=== PATIENT | male | born 2000 | race African-American/Black ===

== ENCOUNTER 2018-08-30 14:44 | Emergency (ER) | payer MEDICAID ==
--- NOTE | 2018-08-30 16:21 | ER Document Report ---
ED Medical Screen (RME) - General Chief Complaint: Leg Pain Stated Complaint: ABDOMINAL PAIN Time Seen by Provider: 08/30/18 16:18 Mode of Arrival: Ambulatory Information source: Patient Notes: pt just moved here from [place] 3 weeks ago, c/o right leg pain, history of sickle cell. no other c/o I have greeted and performed a rapid initial assessment of this patient. A comprehensive ED assessment and evaluation of the patient, analysis of test results and completion of the medical decision making process will be conducted by additional ED providers. TRAVEL OUTSIDE OF THE [place] IN LAST 30 DAYS: No - Related Data Allergies/Adverse Reactions: ondansetron [From Zofran] Allergy (Verified 08/30/18 14:49) Morphine Allergy (Uncoded 08/30/18 14:49) Physical Exam - Vital signs Vitals: Temp Pulse Resp BP Pulse Ox 98.3 F 70 20 148/64 H 100 08/30/18 15:05 08/30/18 15:05 08/30/18 15:05 08/30/18 15:05 08/30/18 15:05 Course - Vital Signs Vital signs: Temp Pulse Resp BP Pulse Ox 98.3 F 70 20 148/64 H 100 08/30/18 15:05 08/30/18 15:05 08/30/18 15:05 08/30/18 15:05 08/30/18 15:05 - Laboratory Result Diagrams: 08/30/18 17:15 08/30/18 17:15 Laboratory results interpreted by me: 08/30/18 08/30/18 17:15 17:15 RDW 19.3 H Plt Count 104 L Monocytes % (Manual) 2 L Retic Count (auto) 4.91 H Absolute Retic 0.245 H Total Bilirubin 2.8 H Alkaline Phosphatase 46 L
[2018-08-30 17:32] LABS: ABSOLUTE RETICS # 0.245 10^6/uL (0.028-0.122); HEMATOCRIT 40.3 % (37.9-51.0); HEMOGLOBIN 14.3 g/dL (13.5-17.0); MEAN CORPUSCULAR HEMOGLOBIN 28.7 pg (27.0-33.4); MEAN CORPUSCULAR HGB CONC 35.6 g/dL (32.0-36.0); MEAN CORPUSCULAR VOLUME 81 fl (80-97); PLATELET COUNT 104 10^3/uL (150-450); RED BLOOD COUNT 4.99 10^6/uL (4.35-5.55); RED CELL DISTRIBUTION WIDTH 19.3 % (11.5-14.0); RETICULOCYTE COUNT (AUTO) 4.91 % (0.66-2.85); WHITE BLOOD COUNT 6.7 10^3/uL (4.0-10.5)
[2018-08-30 17:40] LABS: ALANINE AMINOTRANSFERASE 22 U/L (10-40); ALBUMIN 4.9 g/dL (3.7-5.6); ALKALINE PHOSPHATASE 46 U/L (65-260); ANION GAP 10 (5-19); ASPARTATE AMINO TRANSFERASE 26 U/L (10-45); BILIRUBIN,DIRECT 0.2 mg/dL (0.0-0.4); BILIRUBIN,TOTAL 2.8 mg/dL (0.2-1.3); BLOOD UREA NITROGEN 11 mg/dL (7-20); CALCIUM 9.9 mg/dL (8.4-10.2); CARBON DIOXIDE 28 mmol/L (22-30); CHLORIDE 102 mmol/L (98-107); GLUCOSE 92 mg/dL (75-110); POTASSIUM 4.2 mmol/L (3.6-5.0); SODIUM 140.2 mmol/L (137-145); TOTAL PROTEIN 7.9 g/dL (6.3-8.2)
[2018-08-30 17:57] LABS: ABSOLUTE LYMPHOCYTES# (MANUAL) 2.9 10^3/uL (0.5-4.7); ABSOLUTE MONOCYTES # (MANUAL) 0.1 10^3/uL (0.1-1.4); ABSOLUTE NEUTROPHILS# (MANUAL) 3.6 10^3/uL (1.7-8.2); ANISOCYTOSIS 2+; BASOPHILS % (MANUAL) 1 % (0-2); EOSINOPHILS % (MANUAL) 1 % (0-6); HYPOCHROMASIA 1+; LYMPHOCYTES % (MANUAL) 36 % (13-45); MONOCYTES % (MANUAL) 2 % (3-13); PLATELET COMMENT DECREASED; POLYCHROMASIA SLIGHT; SEGMENTED NEUTROPHILS % (MAN) 53 % (42-78); TARGET CELLS 1+; TOTAL CELLS COUNTED 100
--- NOTE | 2018-08-30 19:02 | ER Document Report ---
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 Was followed by one provider in [place] prior to moving here 3 weeks ago. Patient states when he would have these acute episodes he would receive IV fluids and IV Toradol to see if that helps. If his symptoms resolved then he would typically go home and if they did not then he would receive IV Dilaudid. Patient denies any chest pain or shortness of breath. Patient denies any dizziness or lightheadedness. Denies fevers or chills. Denies nausea, vomiting, abdominal pain. Denies priapism. Patient has not established care here yet and does not have any pain medications. TRAVEL OUTSIDE OF THE [place] IN LAST 30 DAYS: No - Related Data Allergies/Adverse Reactions: ondansetron [From Zofran] Allergy (Verified 08/30/18 14:49) Morphine Allergy (Uncoded 08/30/18 14:49) Past Medical History - General Information source: Patient - Social History Smoking Status: Never Smoker Chew tobacco use (# tins/day): No Frequency of alcohol use: Occasional Drug Abuse: None Family History: None Patient has suicidal ideation: No Patient has homicidal ideation: No Renal/ Medical History: Denies: Hx Peritoneal Dialysis Review of Systems - Review of Systems Constitutional: See HPI EENT: No symptoms reported Cardiovascular: See HPI Respiratory: See HPI Gastrointestinal: See HPI Genitourinary: No symptoms reported Male Genitourinary: See HPI Musculoskeletal: No symptoms reported Skin: No symptoms reported Hematologic/Lymphatic: No symptoms reported Neurological/Psychological: No symptoms reported Physical Exam - Vital signs Vitals: Temp Pulse Resp BP Pulse Ox 98.3 F 70 20 148/64 H 100 08/30/18 15:05 08/30/18 15:05 08/30/18 15:05 08/30/18 15:05 08/30/18 15:05 - Notes Notes: PHYSICAL EXAMINATION: Reviewed vital signs and charting by RN GENERAL: Alert, interacts well. No acute distress. HEAD: Normocephalic, atraumatic. NECK: Full range of motion. Supple. Trachea midline. LUNGS: Clear to auscultation bilaterally, no wheezes, rales, or rhonchi. No respiratory distress. HEART: Regular rate and rhythm. No murmur ABDOMEN: soft, non-tender. Non-distended. Bowel sounds present in all 4 quadrants. no McBurney's point tenderness, no Layton sign. EXTREMITIES: Moves all 4 extremities spontaneously. No edema, No cyanosis. Tenderness when palpating the right leg PSYCH: Normal affect, normal mood. SKIN: Warm, dry, normal turgor. No rashes or lesions noted. Course - Re-evaluation Re-evalutation: 08/30/18 19:00 Overall appears well, not in extremis. Patient's hemoglobin 14.8. Absolute reticulocyte count 0.245, reticulocyte count 4.91. We will give patient IV fluids and IV Toradol and reassess. If patient does not respond will escalate and give a small dose of narcotics. I also plan to bridge the patient with a small prescription for his normal dosing of Percocet. I performed a [facility]ware search and it shows that he has been followed by one provider in [place] with no red flags. 08/30/18 19:01 08/30/18 20:17 Reassessed patient he is still in acute pain he states his pain is an 8.5/10. He said the Toradol did not help. I will give him Dilaudid 0.5 mg IV 1 time then reassess. 08/30/18 21:07 Patient responded well to the Dilaudid. It was given about 45 minutes ago. I will give him another 15 minutes and reassess. At this time patient is moving in the right direction and will be discharged home. 08/30/18 21:28 Patient states he is feeling much better and is ready to go home. Stable for discharge. - Vital Signs Vital signs: Temp Pulse Resp BP Pulse Ox 98.3 F 70 20 148/64 H 100 08/30/18 15:05 08/30/18 15:05 08/30/18 15:05 08/30/18 15:05 08/30/18 15:05 - Laboratory Result Diagrams: 08/30/18 17:15 08/30/18 17:15 Laboratory results interpreted by me: 08/30/18 08/30/18 17:15 17:15 RDW 19.3 H Plt Count 104 L Monocytes % (Manual) 2 L Retic Count (auto) 4.91 H Absolute Retic 0.245 H Total Bilirubin 2.8 H Alkaline Phosphatase 46 L Discharge - Discharge Clinical Impression: Sickle cell pain crisis Condition: Good Disposition: HOME, SELF-CARE Instructions: Sickle Cell Crisis ([facility]) Additional Instructions: You were seen today for sickle cell pain crisis. Please follow-up with your music teacher. Returning to the ED if you have worsening pain, fever greater than 100.4, shortness of breath, persistent vomiting, or any other symptoms that are concerning to you. Prescriptions: Oxycodone HCl/Acetaminophen [Percocet 10-325 Mg Tablet] 1 each PO Q6H #15 tablet
[2018-08-30] MEDS ORDERED: KETOROLAC TROMETHAMINE INJ/PF 30 MG/1 ML SDV IV ONE (19:04)
[2018-08-30] MEDS ORDERED: NORMAL SALINE 1000 ML 1,000 ML IV ONE (19:04)
[2018-08-30] MEDS ORDERED: HYDROMORPHONE HCL INJ/PF 2 MG/ML AMPULE IV ONE (20:17)
[2018-08-30 21:42] VITALS: BP 146/72
== END 2018-08-30 21:42 | disposition home or self-care (01) ==
LOC: ER 14:44
DX: D57.00 Hb-SS disease with crisis, unspecified (principal); R10.9 Unspecified abdominal pain; Z79.899 Other long term (current) drug therapy
CPT/HCPCS: 99284; 96361; 96374; 96375; 36415; 85025; 85045; 80053; J1885; J1170; J7030

== ENCOUNTER 2018-09-23 08:22 | Emergency (ER) | payer MEDICAID ==
[2018-09-23] MEDS ORDERED: OXYCODONE-ACETAMINOPHEN 5-325 MG TABLET PO ONE (09:28)
--- NOTE | 2018-09-23 09:30 | ER Document Report ---
ED Medical Screen (RME) - General Chief Complaint: Sickle Cell Crisis Stated Complaint: BODY PAIN Time Seen by Provider: 09/23/18 09:28 Mode of Arrival: Ambulatory Information source: Patient Notes: 17-year-old male presents to ED for sickle cell pain to the left leg. He states he normally had this pain in his right leg but this demonstrated left. 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 He usually takes ibuprofen and Percocet but he ran out of them about a week ago and this pain started 2 days ago. He had a port in the past but that has been removed. Patient is alert oriented respirations regular and unlabored speaking in full sentences walks with a even steady gait. I have greeted and performed a rapid initial assessment of this patient. A comprehensive ED assessment and evaluation of the patient, analysis of test results and completion of medical decision making process will be conducted by an additional ED providers. TRAVEL OUTSIDE OF THE [place] IN LAST 30 DAYS: No - Related Data Allergies/Adverse Reactions: ondansetron [From Zofran] Allergy (Verified 09/23/18 08:24) Morphine Allergy (Uncoded 09/23/18 08:24) Past Medical History - Social History Chew tobacco use (# tins/day): No Frequency of alcohol use: None Drug Abuse: None Renal/ Medical History: Denies: Hx Peritoneal Dialysis Physical Exam - Vital signs Vitals: Temp Pulse Resp BP Pulse Ox 98.4 F 75 18 133/71 H 100 09/23/18 08:27 09/23/18 08:27 09/23/18 08:27 09/23/18 08:27 09/23/18 08:27 Course - Vital Signs Vital signs: Temp Pulse Resp BP Pulse Ox 98.4 F 75 18 133/71 H 100 09/23/18 08:27 09/23/18 08:27 09/23/18 08:27 09/23/18 08:27 09/23/18 08:27
[2018-09-23 10:36] LABS: APPEARANCE,URINE CLEAR; BILIRUBIN,URINE NEGATIVE (NEGATIVE); COLOR,URINE YELLOW; GLUCOSE, URINE NEGATIVE (NEGATIVE); KETONES,URINE NEGATIVE (NEGATIVE); LEUKOCYTE ESTERASE,URINE NEGATIVE (NEGATIVE); NITRITE,URINE NEGATIVE (NEGATIVE); PROTEIN,URINE NEGATIVE (NEGATIVE); URINE SPECIFIC GRAVITY 1.009; UROBILINOGEN,URINE NEGATIVE mg/dL (<2.0)
[2018-09-23 11:02] LABS: ABSOLUTE RETICS # 0.204 10^6/uL (0.028-0.122); HEMATOCRIT 40.4 % (37.9-51.0); HEMOGLOBIN 14.4 g/dL (13.5-17.0); MEAN CORPUSCULAR HEMOGLOBIN 28.4 pg (27.0-33.4); MEAN CORPUSCULAR HGB CONC 35.7 g/dL (32.0-36.0); MEAN CORPUSCULAR VOLUME 80 fl (80-97); PLATELET COUNT 124 10^3/uL (150-450); RED BLOOD COUNT 5.08 10^6/uL (4.35-5.55); RED CELL DISTRIBUTION WIDTH 18.9 % (11.5-14.0); RETICULOCYTE COUNT (AUTO) 4.01 % (0.66-2.85); WHITE BLOOD COUNT 7.6 10^3/uL (4.0-10.5)
[2018-09-23 11:08] LABS: ABSOLUTE LYMPHOCYTES# (MANUAL) 2.5 10^3/uL (0.5-4.7); ABSOLUTE MONOCYTES # (MANUAL) 0.3 10^3/uL (0.1-1.4); ABSOLUTE NEUTROPHILS# (MANUAL) 4.8 10^3/uL (1.7-8.2); BASOPHILS % (MANUAL) 0 % (0-2); EOSINOPHILS % (MANUAL) 0 % (0-6); LYMPHOCYTES % (MANUAL) 33 % (13-45); MONOCYTES % (MANUAL) 4 % (3-13); PLATELET COMMENT DECREASED; SEGMENTED NEUTROPHILS % (MAN) 63 % (42-78); TOTAL CELLS COUNTED 100
[2018-09-23] MEDS ORDERED: KETOROLAC TROMETHAMINE INJ/PF 30 MG/1 ML SDV IV ONE (11:38)
[2018-09-23] MEDS ORDERED: HYDROMORPHONE HCL INJ/PF 2 MG/ML AMPULE IV ONE (11:38)
[2018-09-23] MEDS ORDERED: NORMAL SALINE 1000 ML 1,000 ML IV ONE (11:39)
[2018-09-23 12:15] LABS: URINE AMPHETAMINES SCREEN NEGATIVE; URINE BARBITURATES SCREEN NEGATIVE; URINE BENZODIAZEPINES SCREEN NEGATIVE; URINE COCAINE SCREEN NEGATIVE; URINE MARIJUANA (THC) SCREEN UNCONFIRMED POSITIVE; URINE METHADONE SCREEN NEGATIVE; URINE PHENCYCLIDINE SCREEN NEGATIVE
--- NOTE | 2018-09-23 13:52 | ER Document Report ---
ED General - General Chief Complaint: Sickle Cell Crisis Stated Complaint: BODY PAIN Time Seen by Provider: 09/23/18 09:28 Mode of Arrival: Ambulatory TRAVEL OUTSIDE OF THE [place] IN LAST 30 DAYS: No - HPI Notes: Patient is a 17-year-old male with a history of sickle cell disease who presents to the emergency department for evaluation of left leg pain. This is not a new pain for him. He has had it in the past. He was actually supposed to have surgery for osteonecrosis of the hip back home in [place], but he moved down here instead. This was discouraged by his physicians. He no longer has chronic pain medication. He does have a history of acute chest syndrome. He has been hospitalized multiple times. Denies any chest pain or difficulty breathing at this time. - Related Data Allergies/Adverse Reactions: ondansetron [From Zofran] Allergy (Verified 09/23/18 08:24) Morphine Allergy (Uncoded 09/23/18 08:24) Past Medical History - General Information source: Patient - Social History Smoking Status: Never Smoker Chew tobacco use (# tins/day): No Frequency of alcohol use: None Drug Abuse: None Family History: None Patient has suicidal ideation: No Patient has homicidal ideation: No Renal/ Medical History: Denies: Hx Peritoneal Dialysis Other: Sickle cell disease Review of Systems - Review of Systems Constitutional: No symptoms reported EENT: No symptoms reported Cardiovascular: No symptoms reported Respiratory: No symptoms reported Gastrointestinal: No symptoms reported Genitourinary: No symptoms reported Musculoskeletal: See HPI Skin: No symptoms reported Neurological/Psychological: No symptoms reported Physical Exam - Vital signs Vitals: Temp Pulse Resp BP Pulse Ox 98.4 F 75 18 133/71 H 100 09/23/18 08:27 09/23/18 08:27 09/23/18 08:27 09/23/18 08:27 09/23/18 08:27 - Notes Notes: Vital signs reviewed, please refer to chart. Patient is normocephalic, atraumatic. Pupils equal round, reactive to light. Neck is supple without meningismus. Heart is regular rate and rhythm. Lungs are clear to auscultation bilaterally. Abdomen is soft, nontender, normoactive bowel sounds throughout. Extremities without cyanosis, clubbing, edema. Peripheral pulses are equal. Skin is warm and dry. Patient is awake, alert, neurological exam is nonfocal. Examination of the left lower extremity is full passive range of motion. No obvious deformity. He has +2 femoral, popliteal, and dorsalis pedis pulses. Sensation is intact. He is tender to palpation over the inguinal ligament, the quadriceps muscles. Capillary refill is brisk. Course - Re-evaluation Re-evalutation: 09/23/18 13:49 Patient presents emergency department for evaluation. It was explained to the patient that he needs to follow-up with a primary care physician/olive brine tester. He voiced understand to this. I did again treat him with pain medication here. His reticulocyte count was mildly elevated, but not markedly so for a patient with this condition. He is not anemic. He was medicated here. We will send him home with a very short course of Percocet. Will refer him on to hematology/oncology. He is to return to the emergency department with worsening or new concerning symptoms of any sort. - Vital Signs Vital signs: Temp Pulse Resp BP Pulse Ox 98.4 F 75 18 133/71 H 100 09/23/18 08:27 09/23/18 08:27 09/23/18 08:27 09/23/18 08:27 09/23/18 08:27 - Laboratory Result Diagrams: 09/23/18 10:11 Laboratory results interpreted by me: 09/23/18 10:11 RDW 18.9 H Plt Count 124 L Retic Count (auto) 4.01 H Absolute Retic 0.204 H Discharge - Discharge Clinical Impression: Left leg pain, Sickle cell crisis Condition: Stable Disposition: HOME, SELF-CARE Instructions: Sickle Cell Crisis ([facility]) Additional Instructions: Rest, stay well-hydrated. Take pain medication as needed for severe pain. Follow-up with hematology/oncology, provider as listed below. Return to the emergency department with worsening or new concerning symptoms. Referrals: ASHLIE RIVERA MD [ACTIVE STAFF] - Follow up as needed
[2018-09-23 14:36] VITALS: BP 109/47
== END 2018-09-23 14:35 | disposition home or self-care (01) ==
LOC: ER 08:22
DX: D57.00 Hb-SS disease with crisis, unspecified (principal); M79.605 Pain in left leg
CPT/HCPCS: 99284; 96361; 96374; 96375; 36415; 85025; 85045; 81001; 80307; J1885; J1170; J7030